=== PATIENT | female | born 1975 | race Two or more races ===

== ENCOUNTER 2018-04-01 00:42 | Emergency (ER) | payer MEDICAID ==
[~2018-04-01] VITALS: Ht 149.9 cm; Wt 68.0 kg
[2018-04-01 00:59] VITALS: BP 132/77
[2018-04-01] MEDS ORDERED: Dicyclomine HCl 10mg/5ml oral soln ORAL ONE (01:00)
[2018-04-01] MEDS ORDERED: Mylanta II UD 30ml ORAL ONE (01:00)
[2018-04-01] MEDS ORDERED: Morphine Sulfate 4mg/ml Inj IVP ONE (01:00)
[2018-04-01] MEDS ORDERED: Lidocaine 2% Visc 15ml soln ORAL ONE (01:00)
--- NOTE | 2018-04-01 01:25 | Emergency Room Report ---
History of Present Illness General Chief Complaint: Abdominal Pain Source: Patient Present Illness HPI Patient presents with complaints of mid abdominal pain Epigastric Complains of mild nausea but denies any vomiting Denies any chest pain or shortness of breath And eyes any lower abdominal pain denies any previous surgeries Pain started yesterday and has progressed Patient reports that she was told by her physician that she had some Central nervous system disorder But does not take any medications and has not seen any specialist for that Allergies: Coded Allergies: No Known Allergies (Unverified , 04/01/18) Patient History Past Medical History: see triage record Pertinent Family History: none Last Menstrual Period: 3 months ago Now: No Reviewed Nursing Documentation: PMH: Agreed; PSxH: Agreed Review of Systems All Other Systems: negative except mentioned in HPI Physical Exam Vital Signs Date Time Temp Pulse Resp B/P (MAP) Pulse Ox O2 Delivery O2 Flow Rate FiO2 04/01/18 00:46 97.5 65 18 132/77 98 97.5 Sp02 EP Interpretation: reviewed, normal General Appearance: well appearing, no apparent distress Head: normocephalic, atraumatic Eyes: bilateral eye PERRL, bilateral eye EOMI ENT: hearing grossly normal, normal pharynx, TMs + canals normal, uvula midline Neck: full range of motion, supple, no meningismus, no bony tend Respiratory: lungs clear, normal breath sounds, no rhonchi, no respiratory distress, no retraction, no accessory muscle use Cardiovascular #1: normal peripheral pulses, regular rate, rhythm, no edema, no gallop, no JVD, no murmur Gastrointestinal: normal bowel sounds, soft, no mass, no organomegaly, non- distended, no guarding, no hernia, no pulsatile mass, no rebound, tenderness - Midepigastric area Genitourinary: no CVA tenderness Musculoskeletal: normal inspection Neurologic: oriented x3, responsive, [employer] operations specialist III-XII nml as tested, motor strength/ tone normal, sensory intact Psychiatric: mood/affect normal Skin: warm/dry, palpation normal, other - Mild jaundice appearance Lymphatic: normal inspection, no adenopathy Medical Decision Making Diagnostic Impression: Primary Impression: Abdominal pain ER Course multiple differentials including, but not limited to cholecystitis, appendicitis ,vascular emergency, perforation entertained blood work is appropriate pt has done well after acute care lower abdomen remains nontender on repeat exam and pt stable for initial conservative outpatient care Labs Test 7/15/18 00:54 04/01/18 01:00 Urine Color Pale yellow Urine Appearance Clear Urine pH 6.5 (4.5-8.0) Urine Specific Wesley 1.020 (1.005-1.035) Urine Protein Negative (NEGATIVE) Urine Glucose (UA) Negative (NEGATIVE) Urine Ketones Negative (NEGATIVE) Urine Occult Blood 1+ (NEGATIVE) Urine Nitrite Negative (NEGATIVE) Urine Bilirubin Negative (NEGATIVE) Urine Urobilinogen Normal MG/DL (0.0-1.0) Urine Leukocyte Esterase 3+ (NEGATIVE) Urine RBC 2-4 /HPF (0 - 2) Urine WBC 2-4 /HPF (0 - 2) Urine Squamous Epithelial Cells Few /LPF (NONE/OCC) Urine Amorphous Sediment Moderate /LPF (NONE) Urine Bacteria Few /HPF (NONE) Urine HCG, Qualitative Negative (NEGATIVE) White Blood Count 10.8 K/UL (4.8-10.8) Red Blood Count 4.27 M/UL (4.20-5.40) Hemoglobin 13.1 G/DL (12.0-16.0) Hematocrit 37.2 % (37.0-47.0) Mean Corpuscular Volume 87 FL (80-99) Mean Corpuscular Hemoglobin 30.7 PG (27.0-31.0) Mean Corpuscular Hemoglobin Concent 35.2 G/DL (32.0-36.0) Red Cell Distribution Width 11.2 % (11.6-14.8) Platelet Count 251 K/UL (150-450) Mean Platelet Volume 7.3 FL (6.5-10.1) Neutrophils (%) (Auto) 77.0 % (45.0-75.0) Lymphocytes (%) (Auto) 15.0 % (20.0-45.0) Monocytes (%) (Auto) 7.1 % (1.0-10.0) Eosinophils (%) (Auto) 0.3 % (0.0-3.0) Basophils (%) (Auto) 0.7 % (0.0-2.0) Sodium Level 133 MMOL/L (136-145) Potassium Level 3.7 MMOL/L (3.5-5.1) Chloride Level 101 MMOL/L (98-107) Carbon Dioxide Level 28 MMOL/L (21-32) Anion Gap 4 mmol/L (5-15) Blood Urea Nitrogen 22 mg/dL (7-18) Creatinine 0.6 MG/DL (0.55-1.30) Estimat Glomerular Filtration Rate > 60 mL/min (>60) Glucose Level 107 MG/DL (74-106) Calcium Level 8.7 MG/DL (8.5-10.1) Total Bilirubin 0.4 MG/DL (0.2-1.0) Aspartate Amino Transf (AST/SGOT) 16 U/L (15-37) Alanine Aminotransferase (ALT/SGPT) 30 U/L (12-78) Alkaline Phosphatase 79 U/L (46-116) Total Protein 7.1 G/DL (6.4-8.2) Albumin 3.7 G/DL (3.4-5.0) Globulin 3.4 g/dL Albumin/Globulin Ratio 1.1 (1.0-2.7) Lipase 283 U/L (73-393) Last Vital Signs Date Time Temp Pulse Resp B/P (MAP) Pulse Ox O2 Delivery O2 Flow Rate FiO2 04/01/18 00:59 97.5 68 18 132/77 98 97.5 Status: improved Disposition: HOME, SELF-CARE Condition: Improved Scripts Mag Hydrox/Al Hydrox/Simeth (MAALOX MAXIMUM STRENGTH SUSP) 355 Ml Oral.susp 10 ML PO BID for 7 Days, ML Prov: Rayshawn Brown DO 04/01/18 Famotidine (PEPCID AC) 20 Mg Tablet 20 MG PO DAILY, #20 TAB Prov: Rayshawn Brown DO 04/01/18 Referrals: NOT CHOSEN IPA/MD,REFERRING (PCP) Additional Instructions: follow up PCP in 2-3 days, return sooner if worse Rayshawn Brown DO Apr 01, 2018 01:25
[2018-04-01 01:26] LABS: BASOPHILS % (AUTO) 0.7 % (0.0-2.0); EOSINOPHILS % (AUTO) 0.3 % (0.0-3.0); HEMATOCRIT 37.2 % (37.0-47.0); HEMOGLOBIN 13.1 G/DL (12.0-16.0); MEAN CORPUSCULAR VOLUME 87 FL (80-99); MONOCYTES % (AUTO) 7.1 % (1.0-10.0); PLATELET COUNT 251 K/UL (150-450); RED BLOOD COUNT 4.27 M/UL (4.20-5.40); RED CELL DISTRIBUTION WIDTH 11.2 % (11.6-14.8); WHITE BLOOD COUNT 10.8 K/UL (4.8-10.8)
[2018-04-01 01:27] LABS: APPEARANCE,URINE CLEAR; BILIRUBIN, URINE NEGATIVE (NEGATIVE); COLOR,URINE PALE YELLOW; GLUCOSE, URINE (UA) NEGATIVE (NEGATIVE); KETONES,URINE NEGATIVE (NEGATIVE); LEUKOCYTE ESTERASE ,URINE 3+ (NEGATIVE); NITRITE,URINE NEGATIVE (NEGATIVE); PH,URINE 6.5 (4.5-8.0); PROTEIN,URINE NEGATIVE (NEGATIVE); UROBILINOGEN,URINE NORMAL MG/DL (0.0-1.0)
[2018-04-01 01:33] LABS: ANION GAP 4 mmol/L (5-15); BLOOD UREA NITROGEN 22 mg/dL (7-18); CALCIUM 8.7 MG/DL (8.5-10.1); CARBON DIOXIDE 28 MMOL/L (21-32); CHLORIDE 101 MMOL/L (98-107); CREATININE 0.6 MG/DL (0.55-1.30); POTASSIUM 3.7 MMOL/L (3.5-5.1); SODIUM 133 MMOL/L (136-145)
[2018-04-01 01:38] LABS: ALANINE AMINOTRANSFERASE 30 U/L (12-78); ALBUMIN 3.7 G/DL (3.4-5.0); ALBUMIN/GLOBULIN RATIO 1.1 (1.0-2.7); ALKALINE PHOSPHATASE 79 U/L (46-116); ASPARTATE AMINO TRANSFERASE 16 U/L (15-37); BILIRUBIN,TOTAL 0.4 MG/DL (0.2-1.0)
[2018-04-01] MEDS ORDERED: MAALOX MAXIMUM355 M1 PO (02:28)
[2018-04-01] MEDS ORDERED: PEPCID AC20 M2 PO (02:28)
[2018-04-01 02:44] VITALS: BP 132/77
== END 2018-04-01 02:44 | disposition home or self-care (01) ==
LOC: EMR 01:00
DX: R10.9 Unspecified abdominal pain (principal)
CPT/HCPCS: 36415; 80053; 81003; 81025; 83690; 85025; 96361; 96374; 96375; 99284; J2270; J2405

== ENCOUNTER 2018-06-11 13:58 | Emergency (ER) | payer MEDICAID ==
[~2018-06-11] VITALS: Ht 149.9 cm; Wt 59.0 kg
[~2018-06-11 13:58] MED LIST: MAALOX MAXIMUM355 M1 PO; PEPCID AC20 M2 PO
--- NOTE | 2018-06-11 14:58 | Emergency Room Report ---
History of Present Illness General Chief Complaint: Lower Back Pain or Injury Source: Patient Present Illness HPI 43-year-old female presents emergency department complaining of 10 out of 10 in severity intermittent low back pain on the right side with occasional radiation into the right leg. She denies trauma or fall. Denies numbness tingling or loss of sensation or gross motor movements of the extremities, incontinence of bowel or bladder. Denies CP, Palpitations, LOC, AMS, dizziness, Changes in Vision, weakness or a sudden severe headache. Denies recent spinal procedures or history of cancer. Denies fevers or chills. She also reports of palpable lump on the right side of the back times several years. pt. reports generalized muscle aches. Denies recent travel or illness. Denies urinary frequency, urgency, dysuria or hematuria. Allergies: Coded Allergies: No Known Allergies (Unverified , 06/11/18) Patient History Past Medical History: see triage record Past Surgical History: none Pertinent Family History: none Last Menstrual Period: 3-4 months ago Now: No Reviewed Nursing Documentation: PMH: Agreed; PSxH: Agreed Nursing Documentation-PMH Past Medical History: No History, Except For Review of Systems All Other Systems: negative except mentioned in HPI Physical Exam Vital Signs Date Time Temp Pulse Resp B/P (MAP) Pulse Ox O2 Delivery O2 Flow Rate FiO2 06/11/18 14:10 98.0 70 15 119/71 96 Room Air 98.1 Sp02 EP Interpretation: reviewed, normal General Appearance: no apparent distress, alert, GCS 15, non-toxic Head: normocephalic, atraumatic Eyes: bilateral eye normal inspection, bilateral eye PERRL ENT: hearing grossly normal, normal voice Neck: full range of motion Respiratory: lungs clear, normal breath sounds, speaking full sentences Cardiovascular #1: regular rate, rhythm Genitourinary: normal inspection, no CVA tenderness Musculoskeletal: back normal, gait/station normal, normal range of motion, tender - Mild Tenderness to palpation to paraspinal muscles of the lower back with no midline tenderness. Neurologic: alert, oriented x3, responsive, motor strength/tone normal, sensory intact, normal gait, speech normal, grossly normal Psychiatric: judgement/insight normal Skin: normal color, no rash, warm/dry, well hydrated, other - palpable lipoma to the right lumbar area, well circumscribed, no erythema no increased temperature to palpation and mostly mobile Medical Decision Making PA Attestation Dr. Noe is my supervising Physician whom patient management has been discussed with. Diagnostic Impression: Primary Impression: Back pain Qualified Codes: M54.5 - Low back pain Additional Impressions: Myalgia Lipoma Qualified Codes: D17.79 - Benign lipomatous neoplasm of other sites ER Course 43-year-old female presents emergency department complaining of 10 out of 10 in severity intermittent low back pain with occasional radiation into the right leg. She denies trauma or fall. Denies numbness tingling or loss of sensation or gross motor movements of the extremities, incontinence of bowel or bladder. Denies CP, Palpitations, LOC, AMS, dizziness, Changes in Vision, weakness or a sudden severe headache. Denies recent spinal procedures or history of cancer. Denies fevers or chills. She also reports of palpable lump on the right side of the back times several years. pt. reports generalized muscle aches. Ddx considered: epidural abscess, fracture, sprain/strain, meningitis, spinal chord injury, sciatica, cauda equina, Pyelonephritis, renal calculi just to name a few. Vital signs reviewed and are WNL during ED visit. Pt. is afebrile with no signs of infection No new symptoms, and denies recent trauma. No saddle anesthesia noted, Pt. denies incontinence Neurovascular is intact * Mild Tenderness to palpation to paraspinal muscles of the lower back with no midline tenderness. -palpable lipoma to the right lumbar area, well circumscribed, no erythema no increased temperature to palpation and mostly mobile Pt. is NAD and non-toxic in appearance, ambulatory and demonstrates FROM. I do not suspect an acute emergent condition at this time. ORDERS: none warranted at this time. INTERVENTIONS: - 20mg IM Toradol D/W Pt. that for further pain management is it recommended to consult PCP or a Chronic Pain management doctor. A provider who can safely prescribe controlled substances with close follow up. DISCHARGE: At this time pt. is stable for d/c to home. Will provide printed patient care instructions, and any necessary prescriptions. Care plan and follow up instructions have been discussed with the patient prior to discharge. Last Vital Signs Date Time Temp Pulse Resp B/P (MAP) Pulse Ox O2 Delivery O2 Flow Rate FiO2 06/11/18 14:10 98.0 70 15 119/71 96 Room Air 98.1 Disposition: HOME, SELF-CARE Condition: Stable Scripts Ibuprofen* (MOTRIN*) 600 Mg Tablet 600 MG ORAL THREE TIMES A DAY, #20 TAB 0 Refills Prov: Shena Queen 06/11/18 Methocarbamol* (ROBAXIN*) 500 Mg Tablet 1000 MG PO TID, #42 TAB 0 Refills Take 2 tabs 3 times daily for at least 3 days, then may drop down to 1 tabe 3 times daily Prov: Shena Queen 06/11/18 Patient Instructions: Back Pain, Adult, Lipoma, Muscle Pain, Adult Additional Instructions: Take medications as directed. Follow up with a Primary Care Provider in 3-5 days, even if your symptoms have resolved. --Please review list of primary care clinics, if you do not already have a primary care provider Return sooner to ED if new symptoms occur, or current symptoms become worse. Do not drink alcohol, drive, or operate heavy machinery while taking Robaxin ( Muscle Relaxers) as this may cause drowsiness. - Please note that this Emergency Department Report was dictated using [employer] line cutter operator technology software, occasionally this can lead to erroneous entry secondary to interpretation by the dictation equipment. Shena Queen Jun 11, 2018 14:58
[2018-06-11] MEDS ORDERED: Ketorolac 60mg Inj IM ONE (15:00)
[2018-06-11] MEDS ORDERED: Methocarbamol 750mg tab ORAL ONE (15:00)
[2018-06-11] MEDS ORDERED: ROBAXIN500 MG PO (15:19)
[2018-06-11] MEDS ORDERED: IBUPROFEN600 MG ORAL (15:20)
[2018-06-11 15:42] VITALS: BP 119/71
[2018-06-11 15:44] VITALS: BP 119/71
== END 2018-06-11 15:45 | disposition home or self-care (01) ==
LOC: EMR 14:59
DX: M54.5 Low back pain (principal); D17.79 Benign lipomatous neoplasm of other sites
CPT/HCPCS: 96372; 99283